=== PATIENT | male | born 1995 | race African-American/Black ===

== ENCOUNTER 2018-04-23 14:15 | Emergency (ER) | payer OTHER ==
[~2018-04-23] VITALS: Ht 177.8 cm; Wt 79.8 kg
--- NOTE | 2018-04-23 15:38 | NUR ---
Dr Urrutia at the bedside for MSE.
[2018-04-23] MEDS ORDERED: IV NORMAL SALINE 1000 ML BAG IV ONE (15:45)
[2018-04-23 16:10] LABS: BASOPHILS % (AUTO) 0.1 % (0.0-2.0); EOSINOPHILS % (AUTO) 0.2 % (0.0-7.0); HEMATOCRIT 46.5 % (36.7-47.1); HEMOGLOBIN 15.9 g/dL (12.5-16.3); LYMPHOCYTES # (AUTO) 1.7 K/uL (20.0-40.0); LYMPHOCYTES % (AUTO) 17.8 % (20.5-51.5); MEAN CORPUSCULAR HGB CONC 34 g/dL (32.5-36.3); MONOCYTES # (AUTO) 0.8 K/uL (2.0-10.0); MONOCYTES % (AUTO) 8.5 % (0.0-11.0); NEUTROPHILS # (AUTO) 7.1 K/uL (1.8-8.9); NEUTROPHILS % (AUTO) 73.4 % (38.5-71.5); PLATELET COUNT (AUTO) 147 K/uL (152-348); RED BLOOD CELL COUNT(AUTO) 5.28 MIL/uL (4.06-5.63); WHITE BLOOD COUNT (AUTO) 9.7 K/uL (3.6-10.2)
[2018-04-23 16:24] LABS: POTASSIUM 3.8 mmol/L (3.5-5.1)
[2018-04-23 16:29] LABS: BILIRUBIN,DIRECT 0.1 mg/dL (0.0-0.2); BILIRUBIN,TOTAL 0.4 mg/dL (0.2-1.0); TOTAL PROTEIN, SERUM 8.3 g/dL (6.4-8.2)
[2018-04-23 17:28] VITALS: BP 131/60
--- NOTE | 2018-04-23 17:28 | NUR ---
IV removed. Catheter intact and site benign. Pressure and 4x4 gauze applied to site. No bleeding noted.
--- NOTE | 2018-04-23 17:29 | NUR ---
Patient discharged to home in stable conditon. Written and verbal after care instructions given. Patient verbalizes understanding of instructions.
== END 2018-04-23 17:29 | disposition home or self-care (01) ==
LOC: ER 14:15
DX: F41.0 Panic disorder [episodic paroxysmal anxiety] (principal); E86.0 Dehydration
CPT/HCPCS: 36415; 71045; 83690; 84443; 85025; 93005; A4663; J7030